=== PATIENT | female | born 1985 | race Caucasian/White ===

== ENCOUNTER 2017-12-26 02:09 | Emergency (ER) | END 2017-12-26 07:39 | disposition home or self-care (01) ==

== ENCOUNTER 2018-07-08 22:36 | Emergency (ER) | END 2018-07-09 01:34 | disposition home or self-care (01) ==

== ENCOUNTER 2018-07-14 13:40 | Emergency (ER) | END 2018-07-14 14:54 | disposition home or self-care (01) ==